=== PATIENT | female | born 1975 | race Hispanic/Latino ===

== ENCOUNTER 2024-06-14 02:52 | Emergency (ER) | payer BC, SELFPAY ==
[2024-06-14] MEDS ORDERED: KETOROLAC 30 MG/ML INJ ONE (03:22)
[2024-06-14] MEDS ORDERED: droPERidol 5 MG/2 ML VIAL ONE (03:22)
[2024-06-14] MEDS ORDERED: ONDANSETRON 4 MG/2 ML VIAL ONE (03:22)
[2024-06-14] MEDS ORDERED: METOCLOPRAMIDE 10 MG/2mL INJ ONE (03:23)
[2024-06-14] MEDS ORDERED: MORPHINE 4 MG/ML SYR ONE (03:23)
[2024-06-14] MEDS ORDERED: NA CHLORIDE 0.9% 1,000 ML ONE (03:24)
[2024-06-14 03:59] LABS: Absolute Lymphocytes (CBC) 0.8 K/uL (0.7-4.9); Absolute Monocytes 0.3 K/uL (0.1-1.3); Absolute Neutrophil 10.9 K/uL (1.8-8.0); Basophils % 0.3 % (0-1.3); Eosinophils % 0.3 % (0-4.4); Hematocrit 43.1 % (36.0-45.0); Hemoglobin 14.6 g/dL (12.0-15.0); MCH 29.3 pg (27.0-35.0); MCHC 33.8 g/dL (32.0-36.0); MCV 86.7 fL (80-100); Monocytes % 2.6 % (3.3-12.3); Neutrophils % 89.8 % (41.7-73.7); Platelets 409 thou/uL (152-406); RBC Red Blood Cell Count 4.98 M/uL (3.86-4.86); Red Cell Distribution Width 15.4 % (12.1-15.2)
[2024-06-14 04:11] LABS: Specific Gravity > 1.030 (1.005-1.030); Urine Bacteria >50 /HPF (<20); Urine Bilirubin 1+ (Negative); Urine Blood Negative (Negative); Urine Clarity Extremely Turbid (Clear); Urine Color Dark-Yellow (Yellow); Urine Culture Reflex Order REFLEXED; Urine Glucose NEGATIVE (Negative); Urine Ketones NEGATIVE (Negative); Urine Microscopic Reflex YN ORDER UMIC; Urine Mucus 4+ /HPF (None Seen); Urine Nitrite NEGATIVE (Negative); Urine Protein 1+ (Negative); Urine Urobilinogen 2+ (Normal); Urine pH 6.5 (5.0-7.0)
[2024-06-14 04:34] LABS: Band Neutrophils 17 % (0-1); Blood Morphology Comment NOT SEEN (NOT SEEN); Differential Total Cells Count 100; Lymphocytes 13 % (15-42); Monocytes 3 % (0-10); Platelet Estimate ADEQ; Reactive Lymphocytes 1 %; Segmented Neutrophils 66 % (40-80)
[2024-06-14] MEDS ORDERED: CEFTRIAXONE 1000 MG/VIAL ONE (05:32)
[2024-06-14] MEDS ORDERED: NA CHLORIDE 0.9% 50 ML ONE (05:33)
[2024-06-14 07:30] LABS: Albumin 3.5 g/dL (3.4-5.0); Albumin/Globulin Ratio 0.7 (1.1-1.8); Bilirubin Total 2.2 mg/dL (0.2-1.0); Globulin 4.9 g/dL (2.3-3.5); Protein, Total 8.4 g/dL (6.4-8.2)
--- NOTE | 2024-06-14 07:42 | RAD REPORT ---
EXAMINATION: CT ABDOMEN AND PELVIS WITH CONTRAST CLINICAL INDICATION: ABD PAIN TECHNIQUE: CT abdomen and pelvis was performed, after the administration of IV contrast, as per depar tment protocol. Axial, sagittal and coronal reconstructions were obtained. One or more of the following dose reduction techniques were used: Automated exposure control, adjustment of the mA and k V according to patient size, and iterative reconstruction. Unless otherwise specified, incidental findings do not require dedicated imaging follow-up. COMPARISON: 04/15/2017 FINDINGS: LOWER CHEST: Mild linear atelectasis in both lung bases. LIVER: Mild fatty liver. Cholecystomy clips. Intrahepatic biliary tree is mildly prominent. Common bi le duct stent is in place. SPLEEN: Normal size. No focal lesion. PANCREAS: No mass, ductal dilation, or erasto-pancreatic fluid. ADRENALS: Normal; no mass. KIDNEYS: Normal size and contour. No hydronephrosis. GASTROINTESTINAL TRACT: No evidence of free air, significant intra-abdominal free fluid, bowel obstru ction or abscess. APPENDIX: Normal appendix. LYMPH NODES: No lymphadenopathy. MUSCULOSKELETAL: Erosive changes with sclerosis both SI joints. ADDITIONAL FINDINGS: None. IMPRESSION: Common bile duct stent is in place with: Ostectomy clips noted. Intrahepatic biliary tree mildly prom inent. Sclerosis involving both SI joints with small erosions present suggests sacroiliitis.
--- NOTE | 2024-06-14 09:58 | ER ---
Nurse's Notes [facility] Name: Sruthi Polo Age: 48 yrs Sex: Female : 1975 Arrival Date: 06/14/2024 Time: 02:52 Bed 5 Private MD: Diagnosis: Abnormal findings on diagnostic imaging of liver and biliary tract Presentation: 06/14 02:59 Chief complaint: Patient states: PT C/O NAUSEA/VOMITING AND AB PAIN. Coronavirus br2 screen: Client denies travel out of the [place] in the last 14 days. Ebola Screen: Patient denies exposure to infectious person. Initial Sepsis Screen: Does the patient meet any 2 criteria? No. Patient's initial sepsis screen is negative. Does the patient have a suspected source of infection? No. Patient's initial sepsis screen is negative. Risk Assessment: Do you want to hurt yourself or someone else? Patient reports no desire to harm self or others. Onset of symptoms was June 14, 2024 at 00:05. 02:59 Method Of Arrival: EMS: [facility] br2 02:59 Acuity: LACI 3 br2 Triage Assessment: 02:59 General: Appears uncomfortable, Behavior is anxious, restless. Pain: Complains of pain br2 in right upper quadrant and left upper quadrant Pain currently is 9 out of 10 on a pain scale. EENT: No signs and/or symptoms were reported regarding the EENT system. Neuro: [place] Agitation-Sedation Scale (RASS): 0 - Alert and Calm Level of Consciousness is awake, alert, obeys commands, Oriented to person, place, time, situation. Cardiovascular: Capillary refill < 3 seconds. Respiratory: Airway is patent Respiratory effort is even, unlabored, Respiratory pattern is regular, symmetrical. GI: Reports upper abdominal pain, nausea, vomiting. Historical: - Allergies: 04:05 PENICILLINS; br2 - PMHx: 04:05 None; br2 - Immunization history:: Adult Immunizations not up to date. - Infectious Disease History:: Denies. - Social history:: Smoking status: Patient reports the use of cigarette tobacco products, smokes one pack cigarettes per day. Patient/guardian denies using alcohol, street drugs. - Family history:: not pertinent. Screenin:08 [facility] ED Fall Risk Assessment (Adult) History of falling in the last 3 months, br2 including since admission No falls in past 3 months (0 pts) Confusion or Disorientation No (0 pts) Intoxicated or Sedated No (0 pts) Impaired Gait No (0 pts) Mobility Assist Device Used No (0 pt) Altered Elimination No (0 pt) Score/Fall Risk Level 0 - 2 = Low Risk Oriented to surroundings. Abuse screen: Denies threats or abuse. Denies injuries from another. Nutritional screening: No deficits noted. Tuberculosis screening: No symptoms or risk factors identified. Assessment: 02:59 Reassessment: see triage assessment. br2 04:08 Reassessment: Patient states feeling better. Patient states symptoms have improved. br2 Respiratory: Airway is patent Respiratory effort is even, unlabored, Respiratory pattern is regular, symmetrical. 05:42 Reassessment: Patient denies pain at this time. Patient states feeling better. Patient br2 states symptoms have improved. 07:56 Reassessment: Patient appears in no apparent distress at this time. Patient and/or db family updated on plan of care and expected duration. Pain level reassessed. Patient is alert, oriented x 3, equal unlabored respirations, skin warm/dry/pink. PATIENT AMBULATORY TO RESTROOM. General: Appears in no apparent distress. comfortable, Behavior is calm, cooperative. Neuro: Level of Consciousness is awake, alert, obeys commands, Oriented to person, place, time, situation. Respiratory: Airway is patent Respiratory effort is even, unlabored, Respiratory pattern is regular, symmetrical. 09:29 Reassessment: Patient appears in no apparent distress at this time. Patient and/or db family updated on plan of care and expected duration. Pain level reassessed. Patient is alert, oriented x 3, equal unlabored respirations, skin warm/dry/pink. General: Appears in no apparent distress. comfortable, Behavior is calm, cooperative. Neuro: Level of Consciousness is awake, alert, obeys commands, Oriented to person, place, time, situation. 09:43 Reassessment: REPORT GIVEN TO KIKI HERNANDEZ AT [facility] PT GOING TO ROOM 1823. db 10:24 Reassessment: Patient appears in no apparent distress at this time. Patient and/or db family updated on plan of care and expected duration. Pain level reassessed. Patient is alert, oriented x 3, equal unlabored respirations, skin warm/dry/pink. EMS HERE FOR PT TRANSPORT. Vital Signs: 02:59 BP 127 / 112; Pulse 91; Resp 18; Temp 97.4(TE); Pulse Ox 97% on R/A; Weight 65.77 kg; br2 Height 5 ft. 2 in. ; Pain 9/10; 04:07 BP 100 / 65; Pulse 77; Resp 18; Pulse Ox 97% on R/A; br2 04:40 BP 102 / 62; Pulse 76; Resp 18; Pulse Ox 96% ; br2 05:30 BP 95 / 63; Pulse 79; Resp 18; Pulse Ox 96% ; vc1 06:56 BP 95 / 62; Pulse 78; Resp 18; Pulse Ox 97% ; Pain 0/10; br2 07:30 BP 101 / 61; Pulse 76; Resp 16; Pulse Ox 95% on R/A; db 08:45 BP 97 / 66; Pulse 79; Resp 16; Pulse Ox 97% on R/A; db 09:00 BP 94 / 54; Pulse 79; Resp 16; Pulse Ox 97% on R/A; db 10:00 BP 104 / 78; Pulse 80; Resp 16; Pulse Ox 98% ; db 02:59 Body Mass Index 26.52 (65.77 kg, 157.48 cm) br2 02:59 Pain Scale: Adult br2 06:56 Pain Scale: Adult br2 [place] Coma Score: 06:09 Eye Response: spontaneous(4). Motor Response: obeys commands(6). Verbal Response: sp4 oriented(5). Total: 15. ED Course: 02:57 Patient arrived in ED. rv1 02:59 Ana Levine RN is Primary Nurse. br2 03:03 Triage completed. br2 03:04 Art Hadley MD is Attending Physician. sp4 03:21 CBC with Diff Sent. vk 03:21 CMP Sent. vk 03:21 Lipase Sent. vk 03:21 Test, Urine Sent. vk 03:21 Urinalysis w/ reflexes Sent. vk 03:21 Initial lab(s) drawn, by ar, sent to lab. Urine collected: clean catch specimen, clear. vk Inserted saline lock: 20 gauge in right antecubital area, using aseptic technique. Blood collected. Flushed with 10 mL NS. 04:05 Arm band placed on left wrist. br2 04:08 Bed in low position. Call light in reach. Side rails up X 1. Provided Education on: br2 plan of care. 06:01 Radiology exam delayed due to lab results not completed at this time. (BUN/Creatinine). nj 06:46 CT Abd/Pelvis - IV Contrast Only In Process Unspecified. EDMS 07:17 Attending Physician role handed off by Art Hadley MD gb1 07:17 Yanna Mercado MD is Attending Physician. gb1 07:22 Primary Nurse role handed off by Ana Levine, KIKI bd 07:56 Brooklynn Oconnor, RN is Primary Nurse. db 10:24 No provider procedures requiring assistance completed. Patient transferred, IV remains db in place. 10:24 Pulse ox on. NIBP on. db Administered Medications: 03:36 Drug: Famotidine IVP 20 mg IVP once; dilute with 10 mL 0.9% NaCl; give over 2 minutes br2 Route: IVP; Site: right antecubital; 05:41 Follow up: Response: No adverse reaction br2 03:36 Drug: TORadol - Ketorolac IVP 30 mg IVP once Route: IVP; Site: right antecubital; br2 05:40 Follow up: Response: No adverse reaction br2 03:36 Drug: Ondansetron IVP 4 mg IVP once; over 2 minutes Route: IVP; Site: right antecubital;br2 05:41 Follow up: Response: No adverse reaction br2 03:36 Drug: morphine IVP or IV 4 mg IVP once over 4 mins Route: IVP; Infused Over: 4 mins; br2 Site: right antecubital; 05:40 Follow up: Response: No adverse reaction br2 03:36 Drug: NS 0.9% IV 1000 ml IV at 1 bolus Per protocol; to be given as a bolus over 60 br2 minutes Route: IV; Rate: 1 bolus; Site: right antecubital; 05:41 Follow up: IV Status: Completed infusion; IV Intake: 1000ml br2 03:43 Drug: Droperidol IVP 2.5 mg IVP once Route: IVP; Site: right antecubital; br2 05:41 Follow up: Response: No adverse reaction br2 03:43 Drug: metoCLOPramide IVP 10 mg IVP once; over 1 to 2 minutes Route: IVP; Site: right br2 antecubital; 05:41 Follow up: Response: No adverse reaction br2 05:40 Drug: Rocephin - Rocephin (cefTRIAXone) IVPB 1 grams IVPB once over 30 mins; (mix in 50 br2 mL NS) Route: IVPB; Infused Over: 30 mins; Site: right antecubital; 07:15 Follow up: Response: No adverse reaction; IV Status: Completed infusion db Medication: 05:42 VIS not applicable for this client. vc1 Intake: 05:41 IV: 1000ml; Total: 1000ml. br2 Outcome: 09:57 ER care complete, transfer ordered by . gb1 10:24 Transferred by ground EMS to [facility], Transfer form completed. db X-rays sent w/ patient. 10:24 Condition: stable 10:24 Instructed on no drinking with medication, 10:26 Patient left the ED. db Signatures: Dispatcher [employer] EDMS Maral Nguyen Nathan nj Calcote, Vanessa RN RN vc1 Brooklynn Oconnor RN RN db Roselyn Addison Sergey, MD MD sp4 Yanna Mercado MD MD gb1 Yessica Thayer Belinda, RN RN br2 Corrections: (The following items were deleted from the chart) 04:05 04:05 PSHx: None; br2 br2 09:44 09:43 Reassessment: REPORT GIVEN TO KIKI HERNANDEZ db
--- NOTE | 2024-06-14 09:58 | EDPHYS ---
Physician Documentation [facility] Name: Sruthi Polo Age: 48 yrs Sex: Female : 1975 Arrival Date: 06/14/2024 Time: 02:52 Bed 5 Private MD: ED Physician Yanna Mercado HPI: 06/14 03:04 This 48 yrs old Female presents to ER via EMS with complaints of abdominal sp4 pain . 06:08 48-year-old female with history of cholecystectomy and also biliary stent, presented sp4 with acute moderate to severe right upper quadrant abdominal pain associated with vomiting.. Historical: - Allergies: 04:05 PENICILLINS; br2 - PMHx: 04:05 None; br2 - Immunization history:: Adult Immunizations not up to date. - Infectious Disease History:: Denies. - Social history:: Smoking status: Patient reports the use of cigarette tobacco products, smokes one pack cigarettes per day. Patient/guardian denies using alcohol, street drugs. - Family history:: not pertinent. ROS: 06:08 Constitutional: Negative for fever, chills, and weight loss, positive for right upper sp4 quadrant abdominal pain positive for nausea vomiting 06:08 All other systems are negative, Exam: 06:09 Constitutional: This is a well developed, well nourished patient who is awake, alert, sp4 and in no acute distress. Head/Face: Normocephalic, atraumatic. Eyes: Pupils equal round and reactive to light, extra-ocular motions intact. Lids and lashes normal. Conjunctiva and sclera are not injected. Cornea within normal limits. Periorbital areas with no swelling, redness, or edema. ENT: Nares patent. No nasal discharge, no septal abnormalities noted. Tympanic membranes are normal and external auditory canals are clear. Oropharynx with no redness, swelling, or masses, exudates, or evidence of obstruction, uvula midline. Mucous membranes moist. Neck: Trachea midline, no thyromegaly or masses palpated, and no cervical lymphadenopathy. Supple, full range of motion without nuchal rigidity, or vertebral point tenderness. Chest/axilla: Normal chest wall appearance and motion. Nontender with no deformity. No lesions are appreciated. Cardiovascular: Regular rate and rhythm with a normal S1 and S2. No gallops, murmurs, or rubs. Normal PMI, no JVD. No pulse deficits. Respiratory: Lungs have equal breath sounds bilaterally, clear to auscultation and percussion. No rales, rhonchi or wheezes noted. No increased work of breathing, no retractions or nasal flaring. Abdomen/GI: Soft, with normal bowel sounds. No distension or tympany. Positive for guarding, positive for right upper quadrant abdominal moderate to severe tenderness Back: No spinal tenderness. No costovertebral tenderness. Skin: Warm, dry with normal turgor. Normal color with no rashes, no lesions, and no evidence of cellulitis. MS/ Extremity: Pulses equal, no cyanosis. Neurovascular intact. Full, normal range of motion. Neuro: Awake and alert, GCS 15, oriented to person, place, time, and situation. Cranial nerves II-XII grossly intact. Motor strength 5/5 in all extremities. Sensory grossly intact. Psych: Awake, alert, with orientation to person, place and time. Behavior, mood, and affect are within normal limits Vital Signs: 02:59 BP 127 / 112; Pulse 91; Resp 18; Temp 97.4(TE); Pulse Ox 97% on R/A; Weight 65.77 kg; br2 Height 5 ft. 2 in. ; Pain 9/10; 04:07 BP 100 / 65; Pulse 77; Resp 18; Pulse Ox 97% on R/A; br2 04:40 BP 102 / 62; Pulse 76; Resp 18; Pulse Ox 96% ; br2 05:30 BP 95 / 63; Pulse 79; Resp 18; Pulse Ox 96% ; vc1 06:56 BP 95 / 62; Pulse 78; Resp 18; Pulse Ox 97% ; Pain 0/10; br2 07:30 BP 101 / 61; Pulse 76; Resp 16; Pulse Ox 95% on R/A; db 08:45 BP 97 / 66; Pulse 79; Resp 16; Pulse Ox 97% on R/A; db 09:00 BP 94 / 54; Pulse 79; Resp 16; Pulse Ox 97% on R/A; db 10:00 BP 104 / 78; Pulse 80; Resp 16; Pulse Ox 98% ; db 02:59 Body Mass Index 26.52 (65.77 kg, 157.48 cm) br2 02:59 Pain Scale: Adult br2 06:56 Pain Scale: Adult br2 [place] Coma Score: 06:09 Eye Response: spontaneous(4). Motor Response: obeys commands(6). Verbal Response: sp4 oriented(5). Total: 15. MDM: 03:04 Medical Screening Exam initiated sp4 06:56 Differential diagnosis: appendicitis, bowel obstruction, cholecystitis, Cholelithiasis, sp4 diverticulitis, Dysmenorrhea, gastritis. Data reviewed: vital signs, nurses notes, EMS record, old medical records, lab test result(s), radiologic studies, CT scan. Consideration of Admission/Observation Escalation of care including admission/observation considered. Transition of care: After a detail discussion of the patient's case, care is transferred to Yanna Mercado MD. 06/14 03:07 Order name: CBC with Diff; Complete Time: 05:07 sp4 06/14 03:07 Order name: CMP; Complete Time: 07:47 sp4 06/14 03:07 Order name: Lipase; Complete Time: 07:47 sp4 06/14 03:07 Order name: Test, Urine; Complete Time: 05:07 sp4 06/14 03:07 Order name: Urinalysis w/ reflexes; Complete Time: 05:07 sp4 06/14 04:02 Order name: Manual Differential; Complete Time: 05:07 EDMS 06/14 04:14 Order name: Urine Culture EDMS 06/14 03:07 Order name: CT Abd/Pelvis - IV Contrast Only; Complete Time: 07:47 sp4 06/14 03:07 Order name: IV Saline Lock; Complete Time: 03:21 sp4 06/14 03:07 Order name: Labs collected and sent; Complete Time: 03:21 sp4 Administered Medications: 03:36 Drug: Famotidine IVP 20 mg IVP once; dilute with 10 mL 0.9% NaCl; give over 2 minutes br2 Route: IVP; Site: right antecubital; 05:41 Follow up: Response: No adverse reaction br2 03:36 Drug: TORadol - Ketorolac IVP 30 mg IVP once Route: IVP; Site: right antecubital; br2 05:40 Follow up: Response: No adverse reaction br2 03:36 Drug: Ondansetron IVP 4 mg IVP once; over 2 minutes Route: IVP; Site: right antecubital;br2 05:41 Follow up: Response: No adverse reaction br2 03:36 Drug: morphine IVP or IV 4 mg IVP once over 4 mins Route: IVP; Infused Over: 4 mins; br2 Site: right antecubital; 05:40 Follow up: Response: No adverse reaction br2 03:36 Drug: NS 0.9% IV 1000 ml IV at 1 bolus Per protocol; to be given as a bolus over 60 br2 minutes Route: IV; Rate: 1 bolus; Site: right antecubital; 05:41 Follow up: IV Status: Completed infusion; IV Intake: 1000ml br2 03:43 Drug: Droperidol IVP 2.5 mg IVP once Route: IVP; Site: right antecubital; br2 05:41 Follow up: Response: No adverse reaction br2 03:43 Drug: metoCLOPramide IVP 10 mg IVP once; over 1 to 2 minutes Route: IVP; Site: right br2 antecubital; 05:41 Follow up: Response: No adverse reaction br2 05:40 Drug: Rocephin - Rocephin (cefTRIAXone) IVPB 1 grams IVPB once over 30 mins; (mix in 50 br2 mL NS) Route: IVPB; Infused Over: 30 mins; Site: right antecubital; 07:15 Follow up: Response: No adverse reaction; IV Status: Completed infusion db Disposition Summary: 06/14/24 09:57 Transfer Ordered Notes: Transfer Location: [facility] gb1 Reason: Higher level of care gb1 Condition: Stable gb1 Problem: new gb1 Symptoms: have worsened gb1 Accepting Physician: Delfin Fountain(06/14/24 10:26) db Diagnosis - Abnormal findings on diagnostic imaging of liver and biliary tract gb1 Discharge Instructions: - Discharge Summary Sheet db Forms: - SBAR form db - Medication Reconciliation Form gb1 Signatures: Dispatcher [employer] Brooklynn Bolden RN RN db Art Hadley MD MD sp4 Yanna Mercado MD MD gb1 Ana Levine RN RN br2 Corrections: (The following items were deleted from the chart) 04:05 04:05 PSHx: None; br2 br2 06:09 06:08 Constitutional: Negative for fever, chills, and weight loss, sp4 sp4 10:26 09:57 Hiba Ali gb1 db
[2024-06-14 10:50] VITALS: TEMP 97.4
[2024-06-14 11:00] VITALS: BP 104/78; O2SAT 98
== END 2024-06-14 10:26 | disposition short-term general hospital (02) ==
LOC: ER 02:52
DX: R93.2 Abnormal findings on diagnostic imaging of liver and biliary tract (principal); F17.210 Nicotine dependence, cigarettes, uncomplicated; Z96.89 Presence of other specified functional implants
CPT/HCPCS: 36415; 74177; 80053; 81001; 81025; 83690; 85025; 87086; 87088; J0696; J1790; J2405; J2765; J7030; Q9967